=== PATIENT | female | born 1995 | race Caucasian/White ===

== ENCOUNTER 2018-12-18 16:57 | Emergency (ER) | payer BC, OTHER ==
[2018-12-18] MEDS ORDERED: BUFFERED LIDOCAINE 10 ML SYRINGE SUBQ STA (17:05)
[2018-12-18] MEDS ORDERED: AMOX/CLAV 875 MG/125 MG TABLET PO STA (17:05)
--- NOTE | 2018-12-18 17:07 | ED Physician Documentation ---
PD HPI SKIN - Stated complaint Stated Complaint: BOTTOM BUMP - History obtained from History obtained from: Patient (She has a recurrent abscess at the top of her tailbone. She is had it drained several times, last time was 2 years ago. 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 : None HEENT: None Psych: None Musculoskeletal: Osteoarthritis Derm: None - Past Surgical History Past Surgical History: No - Present Medications Home Medications: Ambulatory Orders Medication Instructions Recorded Confirmed Amox/Clav 875/125 [Augmentin] 1 each PO Q12H #20 tablet 12/18/18 - Allergies Allergies/Adverse Reactions: Allergies Allergy/AdvReac Type Severity Reaction Status Date / Time sulfamethoxazole Allergy Hives Verified 12/18/18 17:08 [From Bactrim] trimethoprim [From Bactrim] Allergy Hives Verified 12/18/18 17:08 - Social History Does the pt smoke?: No Smoking Status: Never smoker Does the pt drink ETOH?: No Does the pt have substance abuse?: No PD ED PE NORMAL - Vitals Vital signs reviewed: Yes - General General: Alert and oriented X 3, No acute distress - Back Back: Other (At the top of the gluteal crease a little over on the right side th ere is a small pointed pilonidal cyst.) - Derm Derm: No rash Results - Vitals Vitals: Vital Signs - 24 hr 12/18/18 17:06 Temperature 36.1 C L Heart Rate 96 Respiratory 16 Rate Blood Pressure 142/94 H O2 Saturation 100 Oxygen O2 Source Room air Procedures - Abscess I&D (location) Pilonidal Preparation: Alcohol, Lidocaine 1% Incision: Incised with scalpel, Purulent drainage (v littler), Loculations broken. No: Packed (too small) Other: Pt tolerated well, Dressing applied, Antibiotic prescribed Departure - Departure Disposition: 01 Home, Self Care Clinical Impression: Pilonidal cyst Condition: Good Record reviewed to determine appropriate education?: Yes Health Concerns: Pilonidal cyst Plan of Treatment: Incision and drainage, antibiotics, follow-up with a surgeon. Care Goals: Rid of infection Assessment: As above Instructions: ED Cyst Pilonidal Infected IandD Follow-Up: Yvrose Peoples MD [Provider Admit Priv/Credential] - Prescriptions: Amox/Clav 875/125 [Augmentin] 1 each PO Q12H #20 tablet Comments: Follow-up with your physician in 2 to 3 days for recheck, return if worse. Follow-up with the surgeon for consideration for definitive care.
[2018-12-18 17:08] VITALS: BP 142/94
== END 2018-12-18 17:59 | disposition home or self-care (01) ==
LOC: ED 16:57
DX: L05.01 Pilonidal cyst with abscess (principal)
CPT/HCPCS: 10080; 99282; 99283; A9270

== ENCOUNTER 2019-08-08 09:46 | Day surgery (SDC) | payer BC ==
[2019-08-08] MEDS ORDERED: metroNIDAZOLE 500 MG/100 ML 500 MG/100 ML BAG ONE (09:52)
[2019-08-08] MEDS ORDERED: CEFAZOLIN SODIUM IN 0.9 % NACL 2 GM/100 ML BAG IV ONE (09:53)
[2019-08-08] MEDS ORDERED: LACTATED RINGERS 1,000 ML IV ONE (10:06)
[2019-08-08 10:07] LABS: HCG UR QUAL NEGATIVE
--- NOTE | 2019-08-08 10:25 | ANESTHESIA ---
Pre-Anesthesia VS, & Labs - Diagnosis Pilonidal cyst - Procedure Pilonidal cystectomy Vital Signs: Temp Pulse Resp BP Pulse Ox 36.3 C L 85 16 137/92 H 100 08/08/19 10:06 08/08/19 10:06 08/08/19 10:06 08/08/19 10:06 08/08/19 10:06 Height 5 ft 5 in Weight (kg) 60.7 kg Body Mass Index 24.1 - NPO >8 hours - Is Patient ?: No Home Medications and Allergies Home Medications: Ambulatory Orders Drospirenone/Estradiol [Angeliq 0.25 mg-0.5 mg Tablet] 1 each PO DAILY 07/07/19 Drospirenone/Estradiol [Angeliq 0.25 mg-0.5 mg Tablet] 1 each PO DAILY 07/07/19 Allergies/Adverse Reactions: Allergies Allergy/AdvReac Type Severity Reaction Status Date / Time sulfamethoxazole Allergy Hives Verified 12/18/18 17:08 [From Bactrim] trimethoprim [From Bactrim] Allergy Hives Verified 12/18/18 17:08 Anes History & Medical History - Medical History Cardiovascular: reports: None Pulmonary: reports: None Gastrointestinal: reports: None Urinary: reports: None Musculoskeletal: reports: None Endocrine/Autoimmune: reports: None Blood Disorders: reports: None Skin: reports: None Smoking Status: Never smoker Exam General: Alert, Oriented x3, Cooperative Dental: WNL Mouth Opening: Greater than 4 Fingerbreadths Neck Mobility: Normal Mallampati classification: I Thyromental Distance: greater than 6 cm Respiratory: Lungs clear Cardiovascular: Regular rate Neurological: Normal speech Mental/Cognitive Status: Alert/Oriented X3 Cognitive Status: Within normal limits Plan Anesthesia Type: General Consent for Procedure(s) Verified and Reviewed: Yes Code Status: Attempt Resuscitation ASA classification: 1-Healthy patient Is this case an emergency?: No
[2019-08-08] MEDS ORDERED: ROCURONIUM 50 MG/5 ML VIAL IVP ONE (11:35)
[2019-08-08] MEDS ORDERED: MIDAZOLAM 2 MG/2 ML VIAL IVP ONE (11:35)
[2019-08-08] MEDS ORDERED: fentaNYL 250 MCG/5 ML VIAL IVP ONE (11:35)
[2019-08-08] MEDS ORDERED: KETOROLAC 30 MG/ML VIAL IVP ONE (11:35)
[2019-08-08] MEDS ORDERED: PROPOFOL 200 MG/20 ML VIAL IVP ONE (11:35)
[2019-08-08] MEDS ORDERED: DEXAMETHASONE 4 MG/ML VIAL IVP ONE (11:35)
[2019-08-08] MEDS ORDERED: ONDANSETRON 4 MG/2 ML VIAL IVP ONE (11:35)
[2019-08-08] MEDS: LIDOCAINE 1%-EPI 1:100000 20 ML MDV ONE ×2 (12:01→12:15)
[2019-08-08] MEDS: BUPIVACAINE 0.5% PF 30 ML VIAL ONE ×2 (12:01→12:15)
[2019-08-08] MEDS ORDERED: SUGAMMADEX 200 MG/2 ML VIAL IVP ONE (12:20)
--- NOTE | 2019-08-08 12:25 | OPERATIVE REPORT ---
Operative Report - General Procedure Date: 08/08/19 Planned Procedure: Excision of pilonidal cyst Pre-Op Diagnosis: Recurrently infected pilonidal cyst Procedure Performed: Excision of pilonidal cyst with wound closure Post Op Diagnosis: Recurrently infected pilonidal cyst - Procedure Note Primary Surgeon: Shelton Anesthesia Provider: CHET Steinberg Anesthesia Technique: General ET tube, Local Estimated Blood Loss (mL): 5 Indications: Recurrently infected and painful pilonidal cyst Findings: No evidence of active infection Complications: None apparent - Other Other Information/Narrative: After obtaining informed consent, the patient is brought to the operating room and placed in the supine position on the gurney. Following successful induction of general endotracheal anesthesia, the patient is rolled to the prone position with padding of all bony prominences. The posterior inferior thoracic cavity was prepped and draped in the standard surgical fashion. A timeout was held per scope protocol. All elements of the surgical safety checklist were followed before, during, and after the procedure.Following infiltration with local anesthetic to create a field block, an elliptical incision was fashioned to include all of the puncta related to the pilonidal cyst. This incision was 5 cm long and 2 cm wide. A full-thickness portion of the skin in this area was removed including the pilonidal cyst cavity. The cavity was not entered during its excision. The wound was then checked for hemostasis. The skin wedge that had been removed was passed from the table. The wound was then closed in layers with Vicryl and Nylon sutureAnd a dry dressing was applied.All sponge, needle, and instrument counts were correct at the conclusion of the case. The patient was allowed awaken from anesthesia without difficulty and taken to the postanesthesia care unit in good condition.
[2019-08-08 13:40] VITALS: BP 120/79
== END 2019-08-08 09:47 | disposition home or self-care (01) ==
LOC: SDS 09:46
PROVIDERS: ATTEND Surgery
PROC: 0HB8XZZ Excision of Buttock Skin, External Approach (ICD-10-PCS; principal; 2019-08-08 10:45)
DX: L05.91 Pilonidal cyst without abscess (principal)
CPT/HCPCS: 11770; 81025; J0690; J3010; J7120

== ENCOUNTER 2019-11-09 14:22 | Emergency (ER) | payer BC ==
[2019-11-09 14:48] LABS: BASOPHILS % (AUTO) 0.2 %; EOSINOPHILS % (AUTO) 0.3 %; HGB - HEMOGLOBIN 12.9 g/dL (12.0-16.0); LYMPHOCYTES # (AUTO) 1.6 10^3/uL (1.5-3.5); LYMPHOCYTES % (AUTO) 16.1 %; MEAN CORPUSCULAR HEMOGLOBIN 30.8 pg (27.0-31.0); MEAN CORPUSCULAR HGB CONC 33.2 g/dL (32.0-36.0); MEAN CORPUSCULAR VOLUME 92.6 fL (81.0-99.0); MEAN PLATELET VOLUME 8.6 fL (7.9-10.8); MONOCYTES # (AUTO) 0.7 10^3/uL (0.0-1.0); MONOCYTES % (AUTO) 6.8 %; NEUTROPHILS # (AUTO) 7.5 10^3/uL (1.5-6.6); NEUTROPHILS % (AUTO) 76.3 %; PLT - PLATELET COUNT 346 10^3/uL (130-450); RED BLOOD COUNT 4.19 10^6/uL (4.20-5.40); RED CELL DISTRIBUTION WIDTH 12.3 % (12.0-15.0); WHITE BLOOD COUNT 9.8 x10^3/uL (4.8-10.8)
[2019-11-09 14:52] LABS: BILIRUBIN,URINE NEGATIVE (NEGATIVE); GLUCOSE, URINE (UA) NEGATIVE (NEGATIVE); KETONES,URINE (UA) NEGATIVE (NEGATIVE); LEUKOCYTE ESTERASE, URINE SMALL (NEGATIVE); NITRITE,URINE NEGATIVE (NEGATIVE); OCCULT BLOOD,URINE MODERATE (NEGATIVE); PH,URINE 5.5 PH (5.0-7.5); PROTEIN,URINE 30 mg/dL (NEGATIVE); UROBILINOGEN,URINE 0.2 (NORMAL) E.U./dL (NORMAL)
[2019-11-09 14:54] LABS: CLARITY,URINE HAZY (CLEAR)
[2019-11-09 15:00] LABS: ALBUMIN 4.2 g/dL (3.2-5.5); CALCIUM 9.1 mg/dL (8.5-10.3); CREATININE 0.8 mg/dL (0.4-1.0); TOTAL PROTEIN 8.5 g/dL (6.7-8.2)
[2019-11-09 15:09] LABS: BACTERIA,URINE Many /HPF (None Seen); RBC,URINE TNTC /HPF (0-5); SQUAMOUS EPITHELIAL CELL,UR RARE Squamous (<= Few)
[2019-11-09] MEDS ORDERED: KETOROLAC 30 MG/ML VIAL IVP STA (15:13)
[2019-11-09] MEDS ORDERED: ONDANSETRON 4 MG/2 ML VIAL IVP STA (15:13)
[2019-11-09] MEDS ORDERED: SODIUM CHLORIDE 0.9% 1,000 ML IV STA (15:16)
[2019-11-09] MEDS ORDERED: IOVERSOL 320 100 ML VIAL IVP ONE ×2 (15:24→16:13)
[2019-11-09 15:58] LABS: HCG UR QUAL NEGATIVE
--- NOTE | 2019-11-09 16:21 | CT Report ---
Reason: mid to RLQ abd pain today Procedure Date: 11/09/2019 Accession Number: [id number] / [id number] Procedure: CT - Abdomen/Pelvis W CPT Code: Final Report FULL RESULT: PROCEDURE: Abdomen/Pelvis W INDICATIONS: mid to RLQ abd pain today CONTRAST: IV CONTRAST: Optiray 320 ml: 100 PO CONTRAST: *NO PO CONTRAST TECHNIQUE: After the administration of oral and intravenous contrast, 5 mm thick sections acquired from the diaphragms to the symphysis. 5 mm thick coronal and sagittal reformats were acquired. For radiation dose reduction, the following was used: automated exposure control, adjustment of mA and/or kV according to patient size. COMPARISON: None. FINDINGS: Image quality: Excellent. ABDOMEN: Lung bases: Lung bases are clear. Heart size is normal. Solid organs: Liver and spleen are normal in size and enhancement. Gallbladder is normal. Biliary system is non dilated. Pancreas enhances normally. No adrenal nodules. Kidneys demonstrate normal size and enhancement, without hydronephrosis. There is mild right genitourinary collecting system urothelial enhancement which is a nonspecific finding, but can be related to urinary tract infection. Peritoneum and bowel: Bowel loops demonstrate normal wall thickness and caliber. Moderate amount stool noted in the right colon. No free fluid or air. The appendix is normal. Nodes and vessels: No retroperitoneal or mesenteric adenopathy by size criteria. Aorta and inferior vena cava are normal in size. Miscellaneous: No ventral hernias. PELVIS: Genitourinary: Bladder wall thickness is normal. Miscellaneous: No inguinal hernias or adenopathy. Bones: No suspicious bony lesions. No vertebral body compression fractures. IMPRESSION: 1. No evidence of appendicitis. 2. No free fluid or free air. 3. No dilated loops of bowel. 4. Slight enhancement of the right genitourinary collecting system urothelium. Finding is nonspecific but can be associated with urinary tract infection. Recommend correlation with urinalysis data. 5. Moderate fecal loading involving the right colon. Reviewed by: Marlena Cao MD, PhD on 11/09/2019 4:19 PM PDT Approved by: Marlena Cao MD, PhD on 11/09/2019 4:19 PM PDT Station ID: [id number]
[2019-11-09] MEDS ORDERED: cephALEXin 250 MG CAPSULE PO STA (16:40)
--- NOTE | 2019-11-09 16:43 | ED Physician Documentation ---
PD HPI ABD PAIN - Stated complaint Stated Complaint: ABD PX - Chief complaint Chief Complaint: Abd Pain - History obtained from History obtained from: Patient - History of Present Illness Timing - onset: Today (awoke this morning with general aching in abd, which has migrated to RLQ area with nausea and increased pain.) Timing - duration: Days (1) Timing - details: Gradual onset, Still present Quality: Cramping, Aching, Pain Location: Periumbilical, RLQ Radiation: No: Lower back, Right flank Improved by: Laying still. No: Eating Worsened by: Moving, Breathing, Palpation. No: Eating Associated symptoms: Nausea, Dysuria (yesterday and today). No: Fever, Vomiting, Diarrhea, Constipation, Hematuria, Vaginal bleeding, Vaginal dc Similar symptoms before: Has not had sx before Review of Systems Constitutional: reports: Fatigue. denies: Fever, Chills, Myalgias, Weight Loss Nose: denies: Rhinorrhea / runny nose, Congestion Throat: denies: Sore throat Cardiac: denies: Chest pain / pressure, Palpitations Respiratory: denies: Dyspnea, Cough GI: reports: Abdominal Pain, Nausea. 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 : None HEENT: None Psych: None Musculoskeletal: None Derm: None - Past Surgical History Past Surgical History: No - Present Medications Home Medications: Ambulatory Orders Medication Instructions Recorded Confirmed Drospirenone/Estradiol [Angeliq 1 each PO DAILY 07/07/19 11/09/19 0.25 mg-0.5 mg Tablet] Cephalexin [Keflex] 500 mg PO TID #21 capsule 11/09/19 - Allergies Allergies/Adverse Reactions: Allergies Allergy/AdvReac Type Severity Reaction Status Date / Time sulfamethoxazole Allergy Hives Verified 11/09/19 14:30 [From Bactrim] trimethoprim [From Bactrim] Allergy Hives Verified 11/09/19 14:30 - Social History Does the pt smoke?: No Smoking Status: Never smoker Does the pt drink ETOH?: No Does the pt have substance abuse?: No PD ED PE NORMAL - Vitals Vital signs reviewed: Yes - General General: Alert and oriented X 3, No acute distress, Well developed/nourished - HEENT HEENT: Moist mucous membranes, Pharynx benign - Neck Neck: Supple, no meningeal sign, No adenopathy - Cardiac Cardiac: RRR, No murmur - Respiratory Respiratory: Clear bilaterally - Abdomen Abdomen: Normal bowel sounds, Soft, Non distended, No organomegaly, Other (tender mid abd to RLQ area) - Female Female : Deferred - Rectal Rectal: Deferred - Back Back: No CVA TTP - Derm Derm: Normal color, Warm and dry - Extremities Extremities: No edema, No calf tenderness / cord - Neuro Neuro: Alert and oriented X 3, No motor deficit, Normal speech Results - Vitals Vitals: Vital Signs - 24 hr 11/09/19 11/09/19 14:31 16:33 Temperature 36.7 C 37.1 C Heart Rate 83 76 Respiratory 17 18 Rate Blood Pressure 139/76 H 122/97 H O2 Saturation 100 100 Oxygen O2 Source Room air - Labs Labs: Laboratory Tests 11/09/19 11/09/19 11/09/19 14:38 14:42 14:42 WBC 9.8 RBC 4.19 L Hgb 12.9 Hct 38.8 MCV 92.6 MCH 30.8 MCHC 33.2 RDW 12.3 Plt Count 346 MPV 8.6 Neut # (Auto) 7.5 H Lymph # (Auto) 1.6 Bureau # (Auto) 0.7 Eos # (Auto) 0.0 Baso # (Auto) 0.0 Absolute Nucleated RBC 0.00 Nucleated RBC % 0.0 Sodium 138 Potassium 3.1 L Chloride 104 Carbon Dioxide 23 Anion Gap 11.0 BUN 12 Creatinine 0.8 Estimated GFR (MDRD) 89 Glucose 115 H Calcium 9.1 Total Bilirubin 1.0 AST 18 ALT 12 Alkaline Phosphatase 79 Total Protein 8.5 H Albumin 4.2 Globulin 4.3 H Albumin/Globulin Ratio 1.0 Lipase 27 Urine Color YELLOW Urine Clarity HAZY Urine pH 5.5 Ur Specific [place] 1.025 Urine Protein 30 H Urine Glucose (UA) NEGATIVE Urine Ketones NEGATIVE Urine Occult Blood MODERATE H Urine Nitrite NEGATIVE Urine Bilirubin NEGATIVE Urine Urobilinogen 0.2 (NORMAL) Ur Leukocyte Esterase SMALL H Urine RBC TNTC H Urine WBC >25 H Ur Squamous Epith Cells RARE Squamous Urine Bacteria Many H Ur Microscopic Review INDICATED Urine Culture Comments INDICATED Urine HCG, Qual 11/09/19 14:42 WBC RBC Hgb Hct MCV MCH MCHC RDW Plt Count MPV Neut # (Auto) Lymph # (Auto) Bureau # (Auto) Eos # (Auto) Baso # (Auto) Absolute Nucleated RBC Nucleated RBC % Sodium Potassium Chloride Carbon Dioxide Anion Gap BUN Creatinine Estimated GFR (MDRD) Glucose Calcium Total Bilirubin AST ALT Alkaline Phosphatase Total Protein Albumin Globulin Albumin/Globulin Ratio Lipase Urine Color Urine Clarity Urine pH Ur Specific [place] 1.025 Urine Protein Urine Glucose (UA) Urine Ketones Urine Occult Blood Urine Nitrite Urine Bilirubin Urine Urobilinogen Ur Leukocyte Esterase Urine RBC Urine WBC Ur Squamous Epith Cells Urine Bacteria Ur Microscopic Review Urine Culture Comments Urine HCG, Qual NEGATIVE - Rads (name of study) abd/pelvic CT Radiology: Prelim report reviewed (normal appendix. some thickening of ureteral wall right c/w UTI), See rad report PD MEDICAL DECISION MAKING - ED course Complexity details: reviewed results, considered differential (suspicious for appendicitis, will get labs and CT. ), d/w patient Departure - Departure Disposition: 01 Home, Self Care Clinical Impression: Lower abdominal pain UTI (urinary tract infection) Qualifiers: Urinary tract infection type: acute cystitis Hematuria presence: without hematuria Qualified Code(s): N30.00 - Acute cystitis without hematuria Clinical Impression: (Ruled Out): Appendicitis Condition: Stable Record reviewed to determine appropriate education?: Yes Instructions: ED UTI Cystitis Female Follow-Up: Joaquin Bravo MD [Primary Care Provider] - Prescriptions: Cephalexin [Keflex] 500 mg PO TID #21 capsule Comments: Your CT scan is good without any signs of appendicitis or other significant abnormality. They did comment on a little bit of a increase amount of stool so stay well-hydrated and use a bit of a stool softener once or twice daily for the next several days to week. There is signs of a bladder infection based on your urine test and the CT scan did say there was a little inflammation of the ureteral wall some may be not just the bladder but little higher in the urinary tract. This could account for some general abdominal discomfort. Cephalexin antibiotic for the urinary tract infection. Use some ibuprofen or naproxen 2-3 times a day and add Tylenol if needed for pains. Recheck if not improved well over the next few days. Discharge Date/Time: 11/09/19 16:56
[2019-11-09 16:56] VITALS: BP 122/97
== END 2019-11-09 16:56 | disposition home or self-care (01) ==
LOC: ED 14:22
DX: R10.31 Right lower quadrant pain (principal); N30.00 Acute cystitis without hematuria
CPT/HCPCS: 36415; 74177; 80053; 81001; 81003; 81025; 83690; 85025; 87086; 96361; 96374; 99284